=== PATIENT | male | born 1995 | race Caucasian/White ===

== ENCOUNTER 2017-04-06 18:30 | Emergency (ER) | payer OTHER ==
[2017-04-06 18:35] VITALS: TEMP 98.2; BMI 26.6
--- NOTE | 2017-04-06 18:37 | PDOC ---
Rapid Medical Evaluation Chief Complaint: Headache Time Seen by Provider: 04/06/17 18:32 Medical Evaluation: Allergies Allergy/AdvReac Type Severity Reaction Status Date / Time No Known Allergies Allergy Verified 04/06/17 18:31 04/06/17 18:32 The patient presents with a chief complaint of: No PMH. Headache for two weeks. No hx of headaches. Rates the pain a 20/10. Denies photophobia, phonophobia. Took advil yesterday with little relief. Also endorses intermittent chest pain beginning two weeks ago. I have performed a brief in-person evaluation of this patient; Pertinent physical exam findings: CTAB, RRR, no murmur. I have ordered the following: EKG, CXR The patient will proceed to the ED for further evaluation.
--- NOTE | 2017-04-06 20:35 | PDOC ---
History of Present Illness - General Chief Complaint: Headache Stated Complaint: HEADACHE Time Seen by Provider: 04/06/17 18:32 - History of Present Illness Initial Comments: 04/06/17 20:34 Mr. French is a 21 yo male w/ no pmh who presents w/ a 2 week history of generalized headache he reports comes and goes. He cannot relate it to anything specific but says that he took motrin 500 for it yesterday with no relief. He reports the pain as severe although he denies any phono or photo phobia. He has never had headaches like this in the past but says that when is having these symptoms he also experiences dizziness. In addition, Mr. French reports that he has had generalized chest pain over this same time period. He reports that it hurts when he pushes on his chest over his heart although he denies any shortness of breath or difficutly breathing. The patient denies fever, chills, nausea, vomit, diarrhea and constipation. Denies dysuria, frequency, urgency and hematuria. Allergies: NKDA Past History - Past Medical History Allergies/Adverse Reactions: Allergies Allergy/AdvReac Type Severity Reaction Status Date / Time No Known Allergies Allergy Verified 04/06/17 18:31 Home Medications: Ambulatory Orders Naproxen [Naprosyn -] 500 mg PO BID #14 tablet 12/25/13 COPD: No - Immunization History Immunization Up to Date: Yes - Suicide/Smoking/Psychosocial Hx Smoking Status: Yes Smoking History: Current every day smoker Have you smoked in the past 12 months: Yes Number of Cigarettes Smoked Daily: 20 Information on smoking cessation initiated: Yes 'Breaking Loose' booklet given: 04/06/17 Hx Alcohol Use: Yes (occaison) Drug/Substance Use Hx: No Substance Use Type: None Review of Systems - Review of Systems Comments:: 04/06/17 20:48 GENERAL/CONSTITUTIONAL: No fever or chills. No weakness. HEAD, EYES, EARS, NOSE AND THROAT: No change in vision. No ear pain or discharge. No sore throat. CARDIOVASCULAR: +Chest pain as described. No shortness of breath. RESPIRATORY: +Recent minimal cough. No wheezing, or hemoptysis. GASTROINTESTINAL: No nausea, vomiting, diarrhea or constipation. GENITOURINARY: No dysuria, frequency, or change in urination. MUSCULOSKELETAL: No joint or muscle swelling or pain. No neck or back pain. SKIN: No rash NEUROLOGIC: +Generalized headache with associated dizziness that comes and goes and is "20/10" pain ENDOCRINE: No increased thirst. No abnormal weight change HEMATOLOGIC/LYMPHATIC: No anemia, easy bleeding, or history of blood clots. ALLERGIC/IMMUNOLOGIC: No hives or skin allergy. *Physical Exam - Vital Signs Last Vital Signs Temp Pulse Resp BP Pulse Ox 98.2 F 59 L 18 145/78 100 04/06/17 18:32 04/06/17 18:32 04/06/17 18:32 04/06/17 18:32 04/06/17 18:32 - Physical Exam Comments: 04/06/17 20:49 GENERAL: Awake, alert, and fully oriented, in no acute distress HEAD: No signs of trauma, normocephalic, atraumatic EYES: PERRLA, EOMI, sclera anicteric, conjunctiva clear ENT: Auricles normal inspection, hearing grossly normal, nares patent, oropharynx clear without exudates. Moist mucosa NECK: Normal ROM, supple, no lymphadenopathy, JVD, or masses LUNGS: No distress, speaks full sentences, clear to auscultation bilaterally HEART: +Pain with palpation of lateral sternum on left side. Regular rate and rhythm, normal S1 and S2, no murmurs, rubs or gallops, peripheral pulses normal and equal bilaterally. ABDOMEN: Soft, nontender, normoactive bowel sounds. No guarding, no rebound. No masses EXTREMITIES: Normal inspection, Normal range of motion, no edema. No clubbing or cyanosis. NEUROLOGICAL: +Nystagmus noted with lateral gaze. Negative Serafin-Hallpike test. Cranial nerves II through XII grossly intact. Normal speech, normal gait, no focal sensorimotor deficits SKIN: Warm, Dry, normal turgor, no rashes or lesions noted. ED Treatment Course - LABORATORY CBC & Chemistry Diagram: 04/06/17 22:20 04/06/17 23:10 Medical Decision Making - Medical Decision Making 04/06/17 20:52 Mr. French presents w/ symptoms concerning for cerebellar or brainstem lesion. Head CT ordered to rule out acute process 04/06/17 23:50 Patient signed out to Dr. Pardo for further care. *DC/Admit/Observation/Transfer Diagnosis at time of Disposition: Headache Qualifiers: Headache type: unspecified Headache chronicity pattern: acute headache Intractability: not intractable Qualified Code(s): R51 - Headache - Referrals Referrals: Steffi Sanchez MD [Primary Care Provider] - - Patient Instructions - Post Discharge Activity
[2017-04-06] MEDS ORDERED: SODIUM CHLORIDE 1,000 ML IV STA (21:26)
[2017-04-06] MEDS ORDERED: METOCLOPRAMIDE HCL INJECTION 10 MG/2 ML VIAL IVPUSH ONE (21:26)
[2017-04-06] MEDS ORDERED: METOCLOPRAMIDE HCL INJECTION 10 MG/2 ML VIAL ONE (22:17)
[2017-04-06 22:33] LABS: BASOPHIL 0.4 % (0-2.0); EOSINOPHIL 4.1 % (0-4.5); MCH 32.1 pg (25.7-33.7); MCHC 34.9 g/dl (32.0-35.9); MEAN CELL VOLUME 91.8 fl (80-96); MEAN PLT VOLUME 7.9 fl (7.5-11.1); NEUTROPHILS 52.2 % (42.8-82.8); PLATELET COUNT 219 K/MM3 (134-434); WHITE BLOOD COUNT 8.2 K/mm3 (4.0-10.0)
[2017-04-06 23:43] LABS: ALBUMIN 4.3 g/dl (3.4-5.0); ALK PHOS 51 U/L (45-117); ANION GAP 7 (8-16); BILIRUBIN,TOTAL 0.5 mg/dL (0.2-1.0); CALCIUM 8.9 mg/dL (8.5-10.1); CO2 30 mmol/L (21-32); GLUCOSE,RANDOM 83 mg/dL (74-106); SGOT/AST 11 U/L (15-37); SGPT/ALT 27 U/L (12-78)
--- NOTE | 2017-04-07 00:05 | PDOC ---
*Physical Exam - Vital Signs Last Vital Signs Temp Pulse Resp BP Pulse Ox 98.2 F 59 L 18 145/78 100 04/06/17 18:32 04/06/17 18:32 04/06/17 18:32 04/06/17 18:32 04/06/17 18:32 - Physical Exam Comments: 04/07/17 00:05 GENERAL: Awake, alert, and fully oriented, in no acute distress HEAD: No signs of trauma, normocephalic, atraumatic EYES: PERRLA, EOMI, sclera anicteric, conjunctiva clear ENT: Hearing grossly normal, nares patent, oropharynx clear without exudates. Moist mucosa NECK: Normal ROM, supple, no lymphadenopathy, JVD, or masses LUNGS: No distress, speaks full sentences, clear to auscultation bilaterally HEART: Reproducible sternal and left sided chest pain. Regular rate and rhythm, normal S1 and S2, no murmurs, rubs or gallops, peripheral pulses normal and equal bilaterally. EXTREMITIES : Normal inspection, Normal range of motion, no edema. No clubbing or cyanosis. NEUROLOGICAL: + Vertical nystagmus. cranial nerves II through XII grossly intact. Normal speech, normal gait, no focal sensorimotor deficits SKIN: Warm, Dry, normal turgor, no rashes or lesions noted. ED Treatment Course - LABORATORY CBC & Chemistry Diagram: 04/06/17 22:20 04/06/17 23:10 - ADDITIONAL ORDERS Additional order review: Laboratory Results 04/06/17 04/06/17 23:10 22:20 Sodium 142 Cancelled Potassium 3.7 Cancelled Chloride 105 Cancelled Carbon Dioxide 30 Cancelled Anion Gap 7 L Cancelled BUN 19 H Cancelled Creatinine 1.0 Cancelled Creat Clearance w eGFR > 60 Cancelled Random Glucose 83 Cancelled Calcium 8.9 Cancelled Total Bilirubin 0.5 Cancelled AST 11 L Cancelled ALT 27 Cancelled Alkaline Phosphatase 51 Cancelled Creatine Kinase Cancelled Troponin I Cancelled Total Protein 7.0 Cancelled Albumin 4.3 Cancelled 04/06/17 22:20 RBC 4.92 MCV 91.8 MCHC 34.9 RDW 12.0 MPV 7.9 Neutrophils % 52.2 Lymphocytes % 34.7 Monocytes % 8.6 Eosinophils % 4.1 Basophils % 0.4 - Medications Given in the ED: ED Medications Discontinued Medications Generic Name Dose Route Start Last Admin Trade Name Freq PRN Reason Stop Dose Admin Diphenhydramine HCl 25 mg 04/06/17 21:26 04/06/17 22:00 Benadryl Injection - IVPB 04/06/17 21:27 25 mg ONCE ONE Administration Sodium Chloride 1,000 mls @ 1,000 mls/hr 04/06/17 21:26 04/06/17 22:00 Normal Saline - IV 04/06/17 22:25 1,000 mls/hr ASDIR STA Administration Metoclopramide HCl 10 mg 04/06/17 21:26 04/06/17 22:00 Reglan Injection - IVPUSH 04/06/17 21:27 10 mg ONCE ONE Administration Medical Decision Making - Medical Decision Making 04/07/17 00:[address] Nj. 21 yo male w/ no significant pmh who p/w intermittent, generalized headache x 2w , with no identifiable triggers. Asx. w/ dizziness.Denies fever, chills, nausea , vomit, diarrhea and constipation, dysuria, hematuria, abdominal pain. Physical exam notable for vertical nystagmus. Will evaluate patient for brainstem lesion. CT head pending. ED Course: CT HEAD NON CON 04/07/17 00:10 CT HEAD: No acute intracranial pathology. Patient stable for discharge with return precautions and f/u with neurology. *DC/Admit/Observation/Transfer Diagnosis at time of Disposition: Headache Qualifiers: Headache type: unspecified Headache chronicity pattern: acute headache Intractability: not intractable Qualified Code(s): R51 - Headache - Discharge Dispostion Disposition: HOME Condition at time of disposition: Stable Admit: No - Referrals Referrals: Steffi Sanchez MD [Primary Care Provider] - Alex Barton MD [Staff Physician] - - Patient Instructions Printed Discharge Instructions: DI for Vertigo, Nystagmus Additional Instructions: Please return to the emergency department with any new or worsening symptoms or concerns. Please follow up with neurology within one week. - Post Discharge Activity - Attestations Physician Attestion: 04/07/17 00:13 I attest to the documentation provided in this note.
--- NOTE | 2017-04-07 00:18 | PDOC ---
Attending Attestation - Resident Resident Name: Patrick Nj - ED Attending Attestation I have performed the following: I have examined & evaluated the patient, The case was reviewed & discussed with the resident, I agree w/resident's findings & plan, Exceptions are as noted - HPI HPI: 04/07/17 00:18 21 yo male p/w new daily headache - Physicial Exam PE: 04/07/17 00:18 wnwd 21 has had new onset daily headache head ncat eyes fredy eomi, mild nystagmus neck supple throat no exudates lungs cta b/l cvs [id number] abd soft,nontender ext no e/c/c skin warm,dry neuro axo3,ambulatory with ease,no focal neuro deficits,dtr+2,motor strength 5/ 5 b/l - Medical Decision Making 04/07/17 00:26 ct scan head normal exam labs reviewed noncontributory pt's SALAZAR resolved and he was discharged and referred to neuro
[2017-04-07 00:56] VITALS: BP 120/80; PULSE 70
--- NOTE | 2017-04-07 14:37 | EKG ---
Test Reason : Blood Pressure : / mmHG Vent. Rate : 049 BPM Atrial Rate : 049 BPM P-R Int : 122 ms QRS Dur : 146 ms QT Int : 434 ms P-R-T Axes : 029 054 044 degrees QTc Int : 392 ms SINUS BRADYCARDIA RIGHT BUNDLE BRANCH BLOCK ABNORMAL ECG NO PREVIOUS ECGS AVAILABLE Confirmed by JOEL BAILEY, ANGELA ([id number]) on 04/07/2017 2:36:47 PM Referred By: Confirmed By:ANGELA MALDONADO MD
== END 2017-04-07 00:44 | disposition home or self-care (01) ==
LOC: JER 18:30
PROC: 3E033GC Introduction of Other Therapeutic Substance into Peripheral Vein, Percutaneous Approach (ICD-10-PCS; principal; 2017-04-06)
PROC: 3E0337Z Introduction of Electrolytic and Water Balance Substance into Peripheral Vein, Percutaneous Approach (ICD-10-PCS; 2017-04-06)
DX: R51 Headache (principal)
CPT/HCPCS: 36415; 70450-TC; 71020-TC; 80053; 85025; 93005; 93010; 99283-25